=== PATIENT | female | born 1965 | race Caucasian/White ===

== ENCOUNTER → 2017-08-28 12:58 | Outpatient (CLI) | payer OTHER, SELFPAY ==
--- NOTE | 2017-08-28 | DI.US.S_ITS ---
ULTRASOUND OF RIGHT BREAST: 08/28/2017 CLINICAL: Palpable right breast lump. Comparison is made to exams dated: 08/28/2017 mammogram - [facility] and 02/01/2017 mammogram - [facility]. Color flow and real-time ultrasound of the right breast were performed on the areas of interest. De [place] Torre scale images of the real-time examination were reviewed. There is an 0.8 cm x 0.5 cm x 0.5 cm oval mass in the right breast at 9 o'clock anterior depth. This oval mass is hypoechoic with posterior acoustic enhancement. This correlates as palpated and with mammography findings. A small tract leads to the skin. IMPRESSION: BENIGN There is no sonographic evidence of malignancy. The 0.8 cm x 0.5 cm x 0.5 cm oval mass in the right breast is consistent with a sebaceous cyst and is benign. A 1 year screening mammogram is recommended. This exam was interpreted at Station ID: [id number]. Electronically Signed By: Ashli ramos/:08/28/2017 15:14:27 letter sent: Normal Exam Ultrasound BI-RADS: 2 Benign
--- NOTE | 2017-08-28 | DI.MG.S_ITS ---
UNILATERAL RIGHT DIGITAL DIAGNOSTIC MAMMOGRAM 3D/2D: 08/28/2017 CLINICAL: Right lump. Comparison is made to exams dated: 02/01/2017 mammogram, 12/21/2016 mammogram, and 11/25/2015 mammogram - [facility]. There are scattered fibroglandular elements in the right breast. There is an oval high density mass in the right breast at 9 o'clock middle depth. No other significant masses or calcifications are seen in the breast. IMPRESSION: INCOMPLETE: NEEDS ADDITIONAL IMAGING EVALUATION The oval high density mass in the right breast is indeterminate. An ultrasound is recommended. This exam was interpreted at Station ID: [id number]. NOTE: For mammograms, a report in lay terms will be sent to the patient. Approximately 15% of breast malignancies will not be visualized mammographically. In the management of a palpable breast mass, a negative mammogram must not discourage biopsy of a clinically suspicious lesion. Electronically Signed By: Ashli ramos/alyssa:08/28/2017 13:33:43 letter sent: Additional Imaging Needed ACR BI-RADS Category 0: Incomplete 3340F
== END ==
PROVIDERS: PCP Family Medicine; Visit Provider Family Medicine
DX: N63.10 Unspecified lump in the right breast, unspecified quadrant (principal)
CPT/HCPCS: 76642; 77065; G0279

== ENCOUNTER → 2019-12-05 13:29 | Outpatient (CLI) | payer OTHER, SELFPAY ==
--- NOTE | 2019-12-05 13:40 | DI.MG.S_ITS ---
Patient Name: YOBANY DUNBAR date: 1965 Sex: F Attending Physician: EDITA Indications: Date: 12/05/2019 13:34 At the request of: DONG KOHLER Procedure: MM screening mammo BI BILATERAL DIGITAL SCREENING MAMMOGRAM 3D/2D WITH CAD: 12/05/2019 CLINICAL: Routine screening. Family history of breast cancer. Comparison is made to exams dated: 08/28/2017 mammogram - [facility], 02/01/2017 mammogram, and 12/21/2016 mammogram - [facility]. There are scattered fibroglandular elements in both breasts. Current study was also evaluated with a Computer Aided Detection (CAD) system. There are benign calcifications in both breasts. No significant masses, calcifications, or other findings are seen in either breast. There has been no significant interval change. IMPRESSION: BENIGN There is no mammographic evidence of malignancy. A 1 year screening mammogram is recommended. This exam was interpreted at Station ID: [id number]. NOTE: For mammograms, a report in lay terms will be sent to the patient. Approximately 15% of breast malignancies will not be visualized mammographically. In the management of a palpable breast mass, a negative mammogram must not discourage biopsy of a clinically suspicious lesion. Electronically Signed By: Milton fierro/alyssa:12/05/2019 14:07:36 letter sent: Normal Exam ACR BI-RADS Category 2: Benign Finding(s) 3342F
== END ==
PROVIDERS: PCP Family Medicine; Referring Provider Family Medicine; Visit Provider Family Medicine
DX: Z12.31 Encounter for screening mammogram for malignant neoplasm of breast (principal); Z80.3 Family history of malignant neoplasm of breast
CPT/HCPCS: 77063; 77067

== ENCOUNTER → 2022-01-11 13:07 | Outpatient (CLI) | payer OTHER, SELFPAY ==
[2022-01-11 14:06] LABS: COVID19 -Nasal RAPID Negative (Negative)
--- NOTE | 2022-01-12 18:11 | DI.NM.S_ITS ---
DATE OF SERVICE: 01/11/2022 PROCEDURE: Exercise perfusion study INDICATION: Coronary artery calcification, underlying diabetes mellitus, hypertension and hyperlipidemia. RADIOPHARMACEUTICAL: 26.4 millicurie technetium-99m Myoview IV was injected at stress and 26.2 millicurie technetium-99m Myoview IV was injected at rest. CARDIAC STRESS: The patient underwent exercise perfusion study under the supervision of an attending staff. She walked on Nate protocol for 8 minutes and 01 seconds, achieved 103 percent of target heart rate. Baseline blood pressure 140/80. Peak blood pressure 178/60. She achieved 7 METs of workload. Functional aerobic impairment 14 percent. Baseline rhythm was sinus. During stress, no convincing ischemic changes seen. No significant arrhythmias seen. The patient denied any chest pain. RAW DATA: There was breast shadow seen. GATED STUDY: Stress LV ejection fraction 83 percent without any obvious wall motion abnormalities. Resting end-diastolic volume 76 mL. TID ratio 0.97, which is within normal limits. Lung/heart ratio 0.31, which is within normal limits. MYOCARDIAL PERFUSION SCAN: Stress supine images revealed moderate-size, mild to moderately decreased perfusion of anterior wall, as well as anteroapex, which got resolved during stress prone images, suggestive of breast tissue attenuation artifact. No convincing ischemia or infarction during stress prone images. CONCLUSION: I will call this study likely a normal myocardial perfusion study with evidence of breast atrial tissue attenuation artifact, which got significantly resolved during prone images. Diminished exercise tolerance. Normal hemodynamic response. No significant ischemic electrocardiographic changes or arrhythmias. Left ventricular function preserved. Overall, low-risk myocardial perfusion scan. Ana Asher - SOLE/nandini/carmina doc#: [id number]/job#: [id number] dd: 01/12/2022 16:43:00 dt: 01/12/2022 17:27:00 DICTATING MD/COPIES TO: Samaria Kohler MD COPIES MNE: GIL;
== END ==
PROVIDERS: PCP Nurse Practitioner Family; Referring Provider Internal Medicine Cardiovascular Disease; Visit Provider Internal Medicine Cardiovascular Disease
DX: I25.10 Atherosclerotic heart disease of native coronary artery without angina pectoris (principal); I25.84 Coronary atherosclerosis due to calcified coronary lesion; E11.9 Type 2 diabetes mellitus without complications; I10 Essential (primary) hypertension; E78.5 Hyperlipidemia, unspecified; Z20.822 Contact with and (suspected) exposure to COVID-19
CPT/HCPCS: 78452; 87635; 93017; A9502

== ENCOUNTER → 2022-01-12 06:40 | Outpatient (CLI) | payer OTHER, SELFPAY ==
--- NOTE | 2022-01-12 | DI.ECHO.S_ITS ---
[place] [facility]---------+ [facility] +---------+ : : [address] : : : : [id number] : : : : Phone: [phone]---------+ Echocardiogram Report + + :Name: YOBANY DUNBAR Study Date: 01/12/2022 Height: 64 in : :[facility] ReadingLocation: Weight: 225 lb : : Gender: Female BSA: 2.1 m2 : :: 1965 Age: 56 yrs BP: 127/83 mmHg: :Reason For Study: ATHEROSCLEROTIC HEART DISEASE : :Ordering Physician: ANN, : :NEWTON Performed By: Nga Shannon : :Referring: NEWTON JUAREZ : + + Interpretation Summary The left ventricle is normal in size. The ejection fraction is estimated to be 60-65%. The right ventricle is normal in size and function. No significant valvular pathology seen The IVC is of normal diameter and collapses greater than 50% with a sniff. This suggests a low right atrial pressure of 3 mm Hg. Procedure: A two-dimensional transthoracic echocardiogram with color flow and Doppler was performed. The study quality was technically adequate. There is no prior echocardiogram noted for this patient. The patient was in sinus rhythm with heart rates between 72-94 bpm during the exam. Left Ventricle: The left ventricle is normal in size. There is mild concentric left ventricular hypertrophy. Proximal septal thickening is noted. There is no echo evidence for significant left ventricular outflow tract obstruction. A false chord is noted (normal variant). The ejection fraction is estimated to be 60-65%. There are no focal wall motion abnormalities. Diastolic parameters suggest a relaxation abnormality of the left ventricle, consistent with probable normal filling pressures. Right Ventricle: The right ventricle is normal in size and function. Atria: The left atrial size is normal. Right atrial size is normal. A prominent eustachian valve is noted. There is no Doppler evidence for an interatrial shunt. The thickening of interatrial septum suggests lipomatous hypertrophy. Mitral Valve: The mitral valve leaflets appear mildly thickened, but open well. The mitral valve leaflets are mildly calcified. There is trace mitral regurgitation. Aortic Valve: The aortic valve is trileaflet. The aortic valve opens well. There is no aortic valve stenosis. No aortic regurgitation is present. Tricuspid Valve: The tricuspid valve is normal in structure and function. There is trace tricuspid regurgitation. The right ventricular systolic pressure is estimated to be at least 20 mmHg based on an estimated right atrial pressure of 3 mm Hg. Pulmonic Valve: The pulmonic valve is not well seen, but is grossly normal. There is no pulmonic valvular regurgitation. Great Vessels: The aortic root is normal size. The dimensions of the ascending aorta are normal. The IVC is of normal diameter and collapses greater than 50% with a sniff. This suggests a low right atrial pressure of 3 mm Hg. Pericardium/ Pleura There is no pericardial effusion. There is an anterior echo-free space consistent with a fat pad. There is no pleural effusion. MMode/2D Measurements & Calculations LVIDd: 4.1 cm LVOT diam: 2.1 cm LVIDs: 2.6 cm Ao root diam: 3.0 cm FS: 36.7 % asc Aorta Diam: 3.1 cm IVSd: 1.2 cm Ao Arch Diam (Prox Trans): 2.8 cm LVPWd: 1.2 cm LV young. diameter/BSA (cm/m^2): 2.0 LV sys. diameter/BSA (cm/m^2): 1.2 LA A2 area: 14.4 cm2 RA long axis: 4.8 cm LA A4 area: 12.0 cm2 RA area: 13.9 cm2 LA length (vol): 4.4 cm RA vol: 34.6 ml LA vol: 32.9 ml RA : 16.8 ml/m2 LA vol index: 16.0 ml/m2 IVC diam: 0.99 cm RVD1 (basal): 3.4 cm RVD2 (mid): 2.7 cm TAPSE: 1.8 cm Doppler Measurements & Calculations Ao V2 max: 129.5 cm/sec LVOT Max Cyrus: 91.7 cm/sec Ao V2 mean: 93.2 cm/sec LV V1 max P.4 mmHg Ao max P.7 mmHg LV V1 VTI: 18.9 cm Ao mean P.9 mmHg CHELSIE(I,D): 2.3 cm2 Ao V2 VTI: 28.0 cm CHELSIE(V,D): 2.4 cm2 sev ratio: 0.68 CHELSIE indexed to BSA (cm^2/m^2): 1.1 MV E max cyrus: 65.1 cm/sec TR max cyrus: 203.8 cm/sec MV A max cyrus: 81.3 cm/sec TR max P.6 mmHg MV E/A: 0.80 PA V2 max: 84.2 cm/sec Med Peak E' Cyrus: 6.4 cm/sec PA V2 mean: 58.2 cm/sec E/E' med: 10.2 PA mean P.5 mmHg Lat Peak E' Cyrus: 10.9 cm/sec PA pr(Accel): 53.3 mmHg E/E' lat: 5.9 E/e' average: 8.1 MV dec time: 0.19 sec SV(LVOT): 63.6 ml Reading Physician:10:28 AM
== END ==
PROVIDERS: PCP Nurse Practitioner Family; Referring Provider Internal Medicine Cardiovascular Disease; Visit Provider Internal Medicine Cardiovascular Disease
DX: I25.10 Atherosclerotic heart disease of native coronary artery without angina pectoris (principal)
CPT/HCPCS: 93306